=== PATIENT | male | born 1980 | race American Indian/Alaskan Native ===

== ENCOUNTER 2021-10-28 23:43 | Inpatient (IN) | payer OTHER ==
[2021-10-28] MEDS ORDERED: IPRATROPIUM 0.02% NEBU 2.5 ML IH ONE (23:58)
[2021-10-28] MEDS ORDERED: ALBUTEROL 2.5 MG/3 ML NEBU IH ONE (23:58)
[2021-10-29] MEDS ORDERED: MAGNESIUM SULFATE 2 GM/50 ML BAG IV ONE (00:13)
[2021-10-29] MEDS ORDERED: dexAMETHasone 20 MG/5 ML VIAL IV ONE (00:13)
--- NOTE | 2021-10-29 00:19 | Emergency Department Report ---
HPI - General Chief Complaint: Dyspnea/Respdistress Time Seen by Provider: 10/28/21 23:57 - HPI HPI: Room 1 The patient is a 41-year-old male present with a chief complaint of shortness of breath. Patient states has had a cough occasionally productive of white/yellow sputum and rhinorrhea for the past 2 days. Patient states approximately 6 to 7 hours ago he developed shortness of breath which has been worsening since its onset. Patient denies history of fever and is uncertain if he has had any sick contacts. The patient states he received only 1 dose of the Moderna COVID- vaccine in April 2021. Patient was found to be hypoxic to 88% on room air in triage. Patient is not on home O2. ED Past Medical Hx - Past Medical History Hx Hypertension: Yes - Surgical History Additional Surgical History: Herniorrhaphy - Family History Family history: no significant - Social History Smoking Status: Current Every Day Smoker (2/3 pack/day) Substance Use Type: None (Denies illicit drug use), Alcohol (Occasional) - Medications Home Medications: Home Medications Medication Instructions Recorded Confirmed Last Taken Type Acetaminophen/Codeine [Tylenol #3] 1 tab PO Q6H PRN #20 tab 07/29/15 Unknown Rx Ibuprofen [Motrin] 600 mg PO Q8H PRN #40 tablet 07/29/15 Unknown Rx cephALEXin [Keflex] 500 mg PO Q6HR #40 capsule 07/29/15 Unknown Rx ED Review of Systems ROS: Stated complaint: CHEST PAIN/TIGRE Other details as noted in HPI Constitutional: denies: fever Eyes: denies: eye pain ENT: congestion Respiratory: cough, shortness of breath, wheezing Cardiovascular: denies: chest pain Endocrine: no symptoms reported Gastrointestinal: denies: abdominal pain Genitourinary: denies: dysuria Musculoskeletal: denies: back pain Neurological: denies: headache Physical Exam - Physical Exam Vital Signs: Vital Signs 10/28/21 23:51 Temperature 97.5 F L Pulse Rate 117 H Respiratory 28 H Rate Blood Pressure 165/102 O2 Sat by Pulse 88 Oximetry Physical Exam: GENERAL: The patient is well-developed well-nourished male lying on stretcher exhibiting increased work of breathing. [] HEENT: Normocephalic. Atraumatic. Extraocular motions are intact. Patient has moist mucous membranes. NECK: Supple. Trachea midline CHEST/LUNGS: Diffuse wheezing, accessory muscle use, tachypnea HEART/CARDIOVASCULAR: Regular. There is tachycardia. There is no gallop rub or murmur. ABDOMEN: Abdomen is soft, nontender. Patient has normal bowel sounds. There is no abdominal distention. SKIN: There is no rash. There is no edema. There is no diaphoresis. NEURO: The patient is awake, alert, and oriented. The patient is cooperative. The patient has no focal neurologic deficits. The patient has normal speech. GCS 15 MUSCULOSKELETAL: There is no evidence of acute injury. ED Course Vital Signs 10/28/21 23:51 Temperature 97.5 F L Pulse Rate 117 H Respiratory 28 H Rate Blood Pressure 165/102 O2 Sat by Pulse 88 Oximetry - Reevaluation(s) Reevaluation #1: 10/29/21 01:06 Patient states his breathing has improved somewhat however he still has pain when he coughs. Analgesia ordered Reevaluation #2: 10/29/21 03:15 Patient's 2-minute walking SPO2 decreased to 8089/90% on room air. Patient will be admitted to the hospital ED Medical Decision Making - Lab Data Result diagrams: 10/29/21 00:39 10/29/21 00:39 Laboratory Tests 10/29/21 10/29/21 10/29/21 00:39 00:39 00:39 WBC 9.7 RBC 5.12 H Hgb 15.9 H Hct 47.1 H MCV 92 MCH 31 MCHC 34 RDW 14.2 Plt Count 256 Lymph % (Auto) 8.6 L [place] % (Auto) 11.3 H Eos % (Auto) 2.6 Baso % (Auto) 0.4 Lymph # (Auto) 0.8 L [place] # (Auto) 1.1 H Eos # (Auto) 0.3 Baso # (Auto) 0.0 Seg Neutrophils % 77.1 H Seg Neutrophils # 7.5 D-Dimer Sodium 140 Potassium 4.4 Chloride 100.6 Carbon Dioxide 25 Anion Gap 19 BUN 12 Creatinine 0.9 Estimated GFR > 60 BUN/Creatinine Ratio 13 Glucose 122 H Lactic Acid 1.40 Calcium 9.2 Total Bilirubin 0.60 AST 17 ALT 14 Alkaline Phosphatase 74 Total Creatine Kinase 242 H CK-MB (CK-2) 1.9 CK-MB (CK-2) Rel Index 0.7 Troponin T < 0.010 NT-Pro-B Natriuret Pep 35.37 Total Protein 7.8 Albumin 5.0 Albumin/Globulin Ratio 1.8 10/29/21 00:39 WBC RBC Hgb Hct MCV MCH MCHC RDW Plt Count Lymph % (Auto) [place] % (Auto) Eos % (Auto) Baso % (Auto) Lymph # (Auto) [place] # (Auto) Eos # (Auto) Baso # (Auto) Seg Neutrophils % Seg Neutrophils # D-Dimer < 135.00 Sodium Potassium Chloride Carbon Dioxide Anion Gap BUN Creatinine Estimated GFR BUN/Creatinine Ratio Glucose Lactic Acid Calcium Total Bilirubin AST ALT Alkaline Phosphatase Total Creatine Kinase CK-MB (CK-2) CK-MB (CK-2) Rel Index Troponin T NT-Pro-B Natriuret Pep Total Protein Albumin Albumin/Globulin Ratio - Radiology Data Radiology results: report reviewed (Chest x-ray), image reviewed (Chest x-ray) interpreted by me: Chest x-ray-no definite focal infiltrates, no pneumothorax [address] [address] XRay Report Signed Patient: LUPE OSUNA MR#: [id number] : 1980 Acct:[id number] Age/Sex: 41 / M ADM Date: 10/28/21 Loc: ED Attending Dr: Ordering Physician: EDIS HUMPHREYS MD Date of Service: 10/29/21 Procedure(s): XR chest 1V ap Accession Number(s): [id number] cc: EDIS HUMPHREYS MD Fluoro Time In Minutes: CHEST 1 VIEW INDICATION / CLINICAL INFORMATION: Shortness of breath, cough. FINDINGS: SUPPORT DEVICES: None. HEART / MEDIASTINUM: No significant abnormality. LUNGS / PLEURA: No significant pulmonary or pleural abnormality. No pneumothorax. ADDITIONAL FINDINGS: No significant additional findings. IMPRESSION: 1. No acute findings. Signer Name: Ye Moody MD Signed: 10/29/2021 12:24 AM Workstation Name: [id number] Transcribed By: BC Dictated By: Ye Moody MD Electronically Authenticated By: Ye Moody MD Signed Date/Time: 10/29/2123 DD/ TD/TT: - Differential Diagnosis COVID-pneumonia, reactive airway disease, influenza, CHF Critical care attestation.: If time is entered above; I have spent that time in minutes in the direct care of this critically ill patient, excluding procedure time. ED Disposition Clinical Impression: Hypoxia, Wheezing, Cough Disposition: ADMITTED INPATIENT Is pt being admited?: Yes Does the pt Need Aspirin: Yes Condition: Fair Referrals: PRIMARY CARE,MD [Primary Care Provider] - 3-5 Days Time of Disposition: 03:16 (Care transferred to hospitalist (Dr. Machuca))
--- NOTE | 2021-10-29 00:28 | XRay Report ---
CHEST 1 VIEW INDICATION / CLINICAL INFORMATION: Shortness of breath, cough. FINDINGS: SUPPORT DEVICES: None. HEART / MEDIASTINUM: No significant abnormality. LUNGS / PLEURA: No significant pulmonary or pleural abnormality. No pneumothorax. ADDITIONAL FINDINGS: No significant additional findings. IMPRESSION: 1. No acute findings. Signer Name: Ye Moody MD Signed: 10/29/2021 12:24 AM Workstation Name: [id number]
[2021-10-29 00:58] LABS: Basophils % (Auto) 0.4 % (0.0-1.8); Eosinophils # (Auto) 0.3 K/mm3 (0.0-0.4); Eosinophils % (Auto) 2.6 % (0.0-4.3); Hematocrit 47.1 % (35.5-45.6); Hemoglobin 15.9 gm/dl (11.8-15.2); Lymphocytes # (Auto) 0.8 K/mm3 (1.2-5.4); Lymphocytes % (Auto) 8.6 % (13.4-35.0); Mean Corpuscular HGB Conc 34 % (32-34); Mean Corpuscular Volume 92 fl (84-94); Monocytes # (Auto) 1.1 K/mm3 (0.0-0.8); Monocytes % (Auto) 11.3 % (0.0-7.3); Red Blood Count 5.12 M/mm3 (3.65-5.03); Red Cell Distribution Width 14.2 % (13.2-15.2)
[2021-10-29] MEDS ORDERED: ONDANSETRON 4 MG/2 ML INJ IV ONE (01:04)
[2021-10-29] MEDS ORDERED: fentaNYL 100 MCG/2 ML INJ IV ONE (01:04)
[2021-10-29 01:13] LABS: Platelet Count 256 K/mm3 (140-440)
[2021-10-29 01:18] LABS: Creatine Kinase MB 1.9 ng/mL (0.0-4.0)
[2021-10-29 01:20] LABS: Alanine Aminotransferase 14 units/L (7-56); BUN/Creatinine Ratio 13; Blood Urea Nitrogen 12 mg/dL (9-20); Calcium 9.2 mg/dL (8.4-10.2); Hemolysis Index 9
[2021-10-29] MEDS ORDERED: MORPHINE 4 MG/1 ML INJ IV PRN (05:31)
[2021-10-29] MEDS ORDERED: ACETAMINOPHEN 325 MG TAB PO PRN (05:31)
[2021-10-29] MEDS ORDERED: MAGNESIUM HYDROXIDE (MOM) ORAL LIQD UDC PO PRN (05:31)
[2021-10-29] MEDS ORDERED: ONDANSETRON 4 MG/2 ML INJ IV PRN (05:31)
[2021-10-29] MEDS ORDERED: MORPHINE 2 MG/1 ML INJ IV PRN (05:31)
--- NOTE | 2021-10-29 05:41 | History and Physical Report ---
History of Present Illness Date of examination: 10/29/21 Date of admission: 10/29/2021 Chief complaint: Cough Wheezing History of present illness: 41-year-old -Guyanese male presenting to the emergency room today complaining of cough and shortness of breath. Cough is mostly productive of some yellowish sputum. Symptoms have been ongoing for the past 2 days but got worse over the last few hours. Patient denies any exposure to any chemical fumes. However he indicates he has been exposed to some molds at his previous residence. Patient admits that he smokes tobacco almost on a daily basis denies any illicit drug use. Denies any history of asthma. Patient denies any sick contacts and no recent travel. Denies any contact with anyone with COVID-19. He had 1 dose of the Moderna COVID-vaccine and did not receive any booster shots. Upon arrival in the emergency room today patient was found to be hypoxic with O2 saturation of 88%. Was also found to be wheezing. He was placed on nebulizing treatments and IV steroid with minimal. Patient also placed on oxygen by nasal cannula. Work-up in the emergency room today, chest x-ray was unremarkable. Patient has been admitted with reactive airway disease, hypoxia. Will also be checked for COVID-19. Past History Past Medical History: hypertension Past Surgical History: Other (Herniorrhaphy) Social history: smoking (Current Every Day Smoker (2/3 pack/day)), alcohol abuse ( Alcohol (Occasional)) Family history: no significant family history Medications and Allergies Allergies Allergy/AdvReac Type Severity Reaction Status Date / Time No Known Allergies Allergy Unverified 07/29/15 00:25 Home Medications Medication Instructions Recorded Confirmed Last Taken Type Acetaminophen/Codeine [Tylenol #3] 1 tab PO Q6H PRN #20 tab 07/29/15 Unknown Rx Ibuprofen [Motrin] 600 mg PO Q8H PRN #40 tablet 07/29/15 Unknown Rx cephALEXin [Keflex] 500 mg PO Q6HR #40 capsule 07/29/15 Unknown Rx Active Meds: Active Medications Acetaminophen (Acetaminophen 325 Mg Tab) 650 mg PO Q4H PRN PRN Reason: Pain MILD(1-3)/Fever >100.5/RAHMAN Albuterol/Ipratropium (Ipratropium/Albuterol Sulfate 3 Ml Ampul.Neb) 1 ampul IH Q6HRT SHILO Magnesium Hydroxide (Magnesium Hydroxide (Mom) Oral Liqd Udc) 30 ml PO Q4H PRN PRN Reason: Constipation Methylprednisolone Sodium Succinate (Methylprednisolone Sod Succinate 40 Mg/1 Ml Inj) 40 mg IV Q6HR SHILO Morphine Sulfate (Morphine 2 Mg/1 Ml Inj) 2 mg IV Q4H PRN PRN Reason: Pain, Moderate (4-6) Morphine Sulfate (Morphine 4 Mg/1 Ml Inj) 4 mg IV Q4H PRN PRN Reason: Pain , Severe (7-10) Ondansetron HCl (Ondansetron 4 Mg/2 Ml Inj) 4 mg IV Q8H PRN PRN Reason: Nausea And Vomiting Sodium Chloride (Sodium Chloride 0.9% 10 Ml Flush Syringe) 10 ml IV BID SHILO Sodium Chloride (Sodium Chloride 0.9% 10 Ml Flush Syringe) 10 ml IV PRN PRN PRN Reason: LINE FLUSH Exam - Constitutional Vitals: Temp Pulse Resp BP Pulse Ox 97.5 F L 112 H 24 154/96 98 10/28/21 23:51 10/29/21 00:54 10/29/21 00:54 10/29/21 01:30 10/29/21 01:45 General appearance: Present: no acute distress, well-nourished - EENT Eyes: Present: PERRL, EOM intact. Absent: scleral icterus ENT: hearing intact, clear oral mucosa, dentition normal - Neck Neck: Present: supple, normal ROM - Respiratory Respiratory effort: normal Respiratory: bilateral: wheezing - Cardiovascular Rhythm: regular Heart Sounds: Present: S1 & S2, gallop, rub, click. Absent: systolic murmur, diastolic murmur - Extremities Extremities: no ischemia, pulses intact, No edema, normal temperature, normal color, Full ROM Peripheral Pulses: within normal limits - Abdominal General gastrointestinal: Present: soft, non-tender, non-distended, normal bowel sounds. Absent: mass - Integumentary Integumentary: Present: clear, warm, dry, normal turgor. Absent: rash - Musculoskeletal Musculoskeletal: strength equal bilaterally - Psychiatric Psychiatric: appropriate mood/affect, intact judgment & insight, memory intact, cooperative - Neurologic Neurologic: CNII-XII intact, no focal deficits, moves all extremities HEART Score - HEART Score Troponin: Troponin T < 0.010 ng/mL (0.00-0.029) 10/29/21 00:39 Results - Labs CBC & Chem 7: 10/29/21 00:39 10/29/21 00:39 Labs: Abnormal lab results 10/29/21 10/29/21 Range/Units 00:39 00:39 RBC 5.12 H (3.65-5.03) M/mm3 Hgb 15.9 H (11.8-15.2) gm/dl Hct 47.1 H (35.5-45.6) % Lymph % (Auto) 8.6 L (13.4-35.0) % [place] % (Auto) 11.3 H (0.0-7.3) % Lymph # (Auto) 0.8 L (1.2-5.4) K/mm3 [place] # (Auto) 1.1 H (0.0-0.8) K/mm3 Seg Neutrophils % 77.1 H (40.0-70.0) % Glucose 122 H (75-100) mg/dL Total Creatine Kinase 242 H (55-170) units/L Assessment and Plan Assessment: 1.Reactive airway disease 2.Hypoxia 3.PUI 4.Tobacco abuse Plan: 1.Placed on nebulizing treatment 2.Placed on Oxygen and keep on O2 saturation greater than 92% 3.Await COVID PCR 4.Counseled on quitting tobacco abuse. DVT Prophylaxis: SQ Heparin Code Status: Full Code
--- NOTE | 2021-10-29 09:57 | Consultation ---
History of Present Illness Consult date: 10/29/21 Past History Past Medical History: hypertension Past Surgical History: Other (Herniorrhaphy) Social history: smoking (Current Every Day Smoker (2/3 pack/day)), alcohol abuse ( Alcohol (Occasional)) Family history: no significant family history Medications and Allergies Allergies Allergy/AdvReac Type Severity Reaction Status Date / Time No Known Allergies Allergy Unverified 07/29/15 00:25 Home Medications Medication Instructions Recorded Confirmed Last Taken Type Acetaminophen/Codeine [Tylenol #3] 1 tab PO Q6H PRN #20 tab 07/29/15 Unknown Rx Ibuprofen [Motrin] 600 mg PO Q8H PRN #40 tablet 07/29/15 Unknown Rx cephALEXin [Keflex] 500 mg PO Q6HR #40 capsule 07/29/15 Unknown Rx Active Meds: Active Medications Acetaminophen (Acetaminophen 325 Mg Tab) 650 mg PO Q4H PRN PRN Reason: Pain MILD(1-3)/Fever >100.5/RAHMAN Albuterol/Ipratropium (Ipratropium/Albuterol Sulfate 3 Ml Ampul.Neb) 1 ampul IH Q6HRT SHILO Heparin Sodium (Porcine) (Heparin 5,000 Unit/1 Ml Vial) 5,000 unit SUB-Q Q8HR SHILO Magnesium Hydroxide (Magnesium Hydroxide (Mom) Oral Liqd Udc) 30 ml PO Q4H PRN PRN Reason: Constipation Methylprednisolone Sodium Succinate (Methylprednisolone Sod Succinate 40 Mg/1 Ml Inj) 40 mg IV Q6HR SHILO Morphine Sulfate (Morphine 2 Mg/1 Ml Inj) 2 mg IV Q4H PRN PRN Reason: Pain, Moderate (4-6) Morphine Sulfate (Morphine 4 Mg/1 Ml Inj) 4 mg IV Q4H PRN PRN Reason: Pain , Severe (7-10) Ondansetron HCl (Ondansetron 4 Mg/2 Ml Inj) 4 mg IV Q8H PRN PRN Reason: Nausea And Vomiting Sodium Chloride (Sodium Chloride 0.9% 10 Ml Flush Syringe) 10 ml IV BID SHILO Sodium Chloride (Sodium Chloride 0.9% 10 Ml Flush Syringe) 10 ml IV PRN PRN PRN Reason: LINE FLUSH Physical Examination Vital signs: Vital Signs Temp Pulse Resp BP Pulse Ox 97.5 F L 117 H 28 H 165/102 88 10/28/21 23:51 10/28/21 23:51 10/28/21 23:51 10/28/21 23:51 10/28/21 23:51 Results - Laboratory Findings CBC and BMP: 10/29/21 00:39 10/29/21 00:39 PT/INR, D-dimer D-Dimer < 135.00 ng/mlDDU (0-234) 10/29/21 00:39 Abnormal lab findings: Abnormal Labs 10/29/21 10/29/21 00:39 00:39 RBC 5.12 H Hgb 15.9 H Hct 47.1 H Lymph % (Auto) 8.6 L [place] % (Auto) 11.3 H Lymph # (Auto) 0.8 L [place] # (Auto) 1.1 H Seg Neutrophils % 77.1 H Glucose 122 H Total Creatine Kinase 242 H Assessment and Plan 41 y/o male with acute respiratory failure, and significant shortness of breath of unknown etiology 1. Await COVID test 2. If positive start therapy 3. Smoking cessation 3. Agree with steroids and scheduled duonebs, may consider adding BID inhaled steroids 5. Will continue to follow.
[2021-10-29] MEDS: IPRATROPIUM/ALBUTEROL SULFATE 3 ML AMPUL.NEB IH SCH ×3 (10:14→20:29)
[2021-10-29] MEDS: methylPREDNISolone Sod Succinate 40 MG/1 ML INJ IV SCH ×3 (11:32→23:18)
--- NOTE | 2021-10-29 14:33 | Event Note ---
Date: 10/29/21 Patient seen and examined admitted with SOB, respiratory failure and COVID PUI neg for covid, vitals noted still has sig wheezing will increase iv steroid dose, cont nebs cont to follow clinically
[2021-10-29] MEDS: HEPARIN 5,000 UNIT/1 ML VIAL SUB-Q SCH ×2 (15:28→23:13)
[2021-10-29] MEDS ORDERED: ALBUTEROL 2.5 MG/3 ML NEBU IH PRN (19:44)
[2021-10-30 04:32] VITALS: BP 133/75
[2021-10-30] MEDS: methylPREDNISolone Sod Succinate 40 MG/1 ML INJ IV SCH ×2 (05:44→05:59)
[2021-10-30] MEDS: HEPARIN 5,000 UNIT/1 ML VIAL SUB-Q SCH (06:02)
[2021-10-30 06:26] LABS: Hematocrit 41.9 % (35.5-45.6); Hemoglobin 14.7 gm/dl (11.8-15.2); Mean Corpuscular HGB Conc 35 % (32-34); Mean Corpuscular Volume 91 fl (84-94); Platelet Count 270 K/mm3 (140-440); Red Cell Distribution Width 14.1 % (13.2-15.2)
[2021-10-30 06:39] LABS: BUN/Creatinine Ratio 20; Blood Urea Nitrogen 18 mg/dL (9-20); Calcium 9.6 mg/dL (8.4-10.2); Hemolysis Index 5
[2021-10-30 07:29] LABS: Basophils % (Manual) 0 % (0.0-1.8); Eosinophils % (Manual) 0 % (0.0-4.3); Platelet Estimate Consistent w Auto; Total Cells Counted 100
[2021-10-30] MEDS: IPRATROPIUM/ALBUTEROL SULFATE 3 ML AMPUL.NEB IH SCH (07:59)
[2021-10-30] MEDS ORDERED: BUDESONIDE 0.5 MG/2 ML NEBU IH SCH (12:30)
--- NOTE | 2021-10-30 12:58 | Discharge Summary ---
Providers - Providers Date of Admission: 10/29/21 05:31 Date of discharge: 10/30/21 Attending physician: GRIS LARIOS 10/29/21 06:26 Consult to Physician [CONS] Routine Comment: Consulting Provider: TIMMY APARICIO Physician Instructions: Reason For Exam: Wheezing, Hypoxia- Reactive airway disease Primary care physician: DIAGNOSTIC ASSISTANT Hospitalization Condition: Fair Hospital course: 41-year-old -Armenian male presenting to the emergency room complaining of cough with yellowish sputum and shortness of breath. Upon arrival in the emergency room patient was found to be hypoxic with O2 saturation of 88%. Was also found to be wheezing. He was placed on nebulizing treatments, on oxygen by nasal cannula and IV steroid with minimal improvement. He was admitted with reactive airway disease, hypoxia for further evaluation and Mx. His covid test was negative. His symptoms improved and O2 saturation was normal in RA. He was then discharged home in stable condition with outpt followup. Disposition: 01 HOME / SELF CARE / HOMELESS Final Discharge Diagnosis (Prints w/discharge instructions): 1.Reactive airway disease. 2.Hypoxia, with acute respiratory failure, resolved. 3.Covid 19 PUI - ruled out. 4.Tobacco abuse Time spent for discharge: 34 minutes Core Measure Documentation - Palliative Care Palliative Care/ Comfort Measures: Not Applicable - Core Measures Any of the following diagnoses?: none Exam - Constitutional Vitals: Temp Pulse Resp BP Pulse Ox 98.1 F 106 H 20 133/75 93 10/30/21 03:46 10/30/21 07:59 10/30/21 07:59 10/30/21 03:46 10/30/21 03:46 General appearance: Present: no acute distress, well-nourished - EENT Eyes: Present: PERRL ENT: hearing intact, clear oral mucosa - Neck Neck: Present: supple, normal ROM - Respiratory Respiratory effort: normal Respiratory: bilateral: CTA - Cardiovascular Heart Sounds: Present: S1 & S2. Absent: rub, click - Extremities Extremities: pulses symmetrical, No edema Peripheral Pulses: within normal limits - Abdominal General gastrointestinal: Present: soft, non-tender, non-distended, normal bowel sounds - Integumentary Integumentary: Present: clear, warm, dry - Musculoskeletal Musculoskeletal: gait normal, strength equal bilaterally - Psychiatric Psychiatric: appropriate mood/affect, intact judgment & insight - Neurologic Neurologic: CNII-XII intact, moves all extremities Plan Activity: advance as tolerated Weight Bearing Status: Weight Bear as Tolerated Diet: regular Follow up with: PRIMARY CARE, [Primary Care Provider] - 3-5 Days Forms: Work/School Release Form Prescriptions: Prednisone [predniSONE 5 mg (6-Day Pack, 21 Tabs)] 5 mg PO .TAPER #1 Albuterol Mdi (or & Nicu Only) [ProAir HFA Inhaler] 2 puff IH QID PRN #8.5 gram PRN Reason: Shortness Of Breath
== END 2021-10-30 13:28 | disposition home or self-care (01) | DRG 189 ==
LOC: ED 23:43 → 3A 10-29 05:31
PROVIDERS: ADMIT Internal Medicine Geriatric Medicine; ATTEND Internal Medicine
DX: J96.01 Acute respiratory failure with hypoxia (principal); J45.909 Unspecified asthma, uncomplicated; Z20.822 Contact with and (suspected) exposure to COVID-19; I10 Essential (primary) hypertension; F17.200 Nicotine dependence, unspecified, uncomplicated
CPT/HCPCS: 36415; 71045; 80048; 80053; 82140; 82550; 82553; 83880; 84484; 85007; 85025; 85379; 87040; 94640; 94644; 99406; G0378; J1100; J1644; J2270; J2405; J2920; J3010; J3475; U0003

== ENCOUNTER 2021-10-31 16:21 | Emergency (ER) | payer OTHER ==
[2021-10-31 17:10] VITALS: BP 128/95
== END 2021-10-31 20:35 | disposition left against medical advice (07) ==
LOC: ED 16:21
DX: R07.89 Other chest pain (principal); Z53.21 Procedure and treatment not carried out due to patient leaving prior to being seen by health care provider